=== PATIENT | female | born 1985 | race Caucasian/White ===

== ENCOUNTER 2017-07-25 16:41 | Inpatient (IN) | payer OTHER ==
[~2017-07-25] VITALS: Ht 170.3 cm; Wt 68.6 kg
[~2017-07-25 16:41] MED LIST: AMOXICILLIN 8751 TAB PO; CLEOCIN HCL300 MG PO; FERROUS SU325 MG/TAB PO; HUMIRA40 MG/0.8 MR; IRON325 MG PO; MOTRIN 600600 MG/TAB PO; PERCOCET 325 MG1 TA2 PO; PREDNISONE 5MG5 MG PO; PRENATAL1 TA7 PO; PROBIOTIC ACID1 EAC3 PO; TYLENOL 500MG500 MG PO; ULTRAM 50MG TAB50 MG PO; ZOFRAN 4MG T4 MG/TAB PO
[2017-09-03] VITALS (19 sets, daily range): BP systolic 98–120; BP diastolic 46–86; PULSE 59–74; TEMP 97.8–98.1
[2017-09-03] MEDS ORDERED: PRENATAL1 TA7 PO (10:34)
[2017-09-03] MEDS ORDERED: TYLENOL 500MG500 MG PO (10:35)
[2017-09-03 11:12] LABS: BASO % 0.2 % (0.0-2.0); EOS % 0.2 % (0-4.0); GRAN # 10.3 (1.4-6.5); GRAN % 81.7 % (42.2-75.2); LYMPH # 1.8 (1.2-3.4); MEAN CELL VOLUME 97 fl (80.0-100.0); MEAN CORPUSCULAR HGB CONC 33 g/dl (33.0-37.0); MONO # 0.5 (0.1-0.6); MONO % 3.6 % (1.7-9.3); PLATELET COUNT 257 K/mm3 (130-400); RED BLOOD COUNT 3.18 M/mm3 (4.10-5.30); WHITE BLOOD COUNT 12.6 K/mm3 (4.8-10.8)
[2017-09-03 11:13] LABS: HEMATOCRIT 30.7 % (37.0-47.0); HEMOGLOBIN 10.1 g/dl (12.5-16.0); MEAN CORPUSCULAR HEMOGLOBIN 32 pg (27.0-31.0)
[2017-09-04] VITALS: BP 109/61; PULSE 67; TEMP 98
[2017-09-04 07:00] VITALS: BP 99/62; PULSE 65; TEMP 97.7
[2017-09-04 07:12] LABS: BASO % 0.2 % (0.0-2.0); EOS # 0.2 (0.0-0.7); EOS % 1.6 % (0-4.0); GRAN # 6.3 (1.4-6.5); GRAN % 68.4 % (42.2-75.2); LYMPH # 2.2 (1.2-3.4); LYMPH % 23.7 % (20.0-51.0); MEAN CELL VOLUME 98 fl (80.0-100.0); MEAN CORPUSCULAR HGB CONC 32 g/dl (33.0-37.0); MEAN PLATELET VOLUME 9.5 fl (7.4-10.4); MONO # 0.5 (0.1-0.6); MONO % 5.7 % (1.7-9.3); PLATELET COUNT 200 K/mm3 (130-400); RED BLOOD COUNT 2.72 M/mm3 (4.10-5.30); WHITE BLOOD COUNT 9.2 K/mm3 (4.8-10.8)
[2017-09-04 07:15] LABS: HEMATOCRIT 26.7 % (37.0-47.0); HEMOGLOBIN 8.5 g/dl (12.5-16.0); MEAN CORPUSCULAR HEMOGLOBIN 31 pg (27.0-31.0)
[2017-09-04] MEDS ORDERED: IBU600 MG PO (08:47)
[2017-09-04] MEDS ORDERED: PERCOCET 325 MG1 TA2 PO (08:47)
[2017-09-04 16:20] VITALS: BP 97/72; PULSE 87; TEMP 98.2
[2017-09-04 19:00] VITALS: BP 101/66; PULSE 63; TEMP 97.9
[2017-09-05 08:15] VITALS: BP 1033/52; PULSE 79; TEMP 97.9
== END 2017-09-05 14:45 | disposition home or self-care (01) | DRG 766 ==
LOC: LDR 08-30 16:40 → OB 09-03 10:09
PROVIDERS: Obstetrics & Gynecology
PROC: 10D00Z1 Extraction of Products of Conception, Low, Open Approach (ICD-10-PCS; principal; 2017-09-03)
DX: O34.211 Maternal care for low transverse scar from previous cesarean delivery (principal); N85.8 Other specified noninflammatory disorders of uterus; O99.02 Anemia complicating childbirth; D64.9 Anemia, unspecified; O69.81X0 Labor and delivery complicated by cord around neck, without compression, not applicable or unspecified; O99.89 Other specified diseases and conditions complicating pregnancy, childbirth and the puerperium; M06.9 Rheumatoid arthritis, unspecified; Z3A.39 39 weeks gestation of pregnancy; Z37.0 Single live birth
CPT/HCPCS: J0690; J1885; J2270; J2370; J2405; J2590; J7120; J7512